=== PATIENT | female | born 1980 | race Caucasian/White ===

== ENCOUNTER 2025-07-19 13:50 | Outpatient (REF) | payer BC, SELFPAY ==
[2025-07-19 18:05] LABS: MANUAL DIFF FLAG NO
[2025-07-19 18:06] LABS: Hematocrit 40.3 % (37.0-47.0); Hemoglobin 13.0 g/dl (12.0-16.0); Imm Gran Abs Auto 0.03 X10*3/uL (0.00-0.03); Imm Gran Pct Auto 0.3 % (0.0-0.4); Lymphocytes Absolute Auto 2.9 X10*3/uL (1.2-4.9); Mean Corpuscular HGB Conc 32.3 g/dl (31.0-35.0); Mean Corpuscular Hemoglobin 29.2 pg (27.0-33.0); Mean Corpuscular Volume 90.6 fL (80.0-98.0); NRBC Abs Auto 0.000 X10*3/uL (0.0-0.012); NRBC Pct Auto 0.0 /100WBC (0.0-0.2); Platelet Count 381 X10*3/uL (160-400); Red Blood Count 4.45 X10*6/uL (4.20-5.50); White Blood Count 9.4 X10*3/uL (4.8-10.8)
[2025-07-19 18:34] LABS: Alanine Aminotransferase 30 U/L (0-31); Albumin Level 4.3 g/dL (3.5-5.0); Alkaline Phosphatase 68 U/L (39-117); Anion Gap 10 (12-20); Aspartate Amino Transferase 28 U/L (5-31); Blood Urea Nitrogen 17 mg/dL (9-16); Calcium 9.6 mg/dL (8.4-10.2); Carbon Dioxide 29 mmol/L (22-29); Chloride 105 mmol/L (96-108); Cholesterol 196 mg/dL (<200); Estimated Glomerular Filt Rate > 60; HDL Cholesterol 81 mg/dL (>40); Potassium 3.9 mmol/L (3.3-5.1); Sodium 140 mmol/L (135-145); Total Protein 7.0 g/dL (6.5-8.0); Triglycerides 147 mg/dL (<150)
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
--- OUTSIDE RECORDS SUMMARY | 2025-07-19 19:50 | XMS_ITS | Encounter Summary ---
Author Organization [facility] Address [address] [place] [address] Care Team Providers Care Clinical Informatics Manager Name Role Phone Betty Herzog DO Primary Care Provider Unavaila ble Reason for Visit * Reason Onset Date Comments 09/11/2023 Medication 09/11/2023 Encounter Details Date Type Department Care Team Description 09/11/2023 Telephone OBGYN - [place] [address] [place] [address] Emiliana Farrar CNM [address] [place] [address] ; Medication Social History Tobacco Use Types Packs/Day Years Used Date Smoking Tobacco: Former Cigarettes 1 Vapor Smokeless Tobacco: Never Alcohol Use Standard Drinks/Week Comments Not Currently 0 (1 standard drink = 0.6 oz pur e alcohol) couple days week Sex Assigned at Date Recorded Not on file Job Start Date Occupation Industry Not on file Not on file Not on file documented as of this encounter Miscellaneous Notes * Telephone Encounter - Milagro Petty R.N. - 09/11/2023 4:58 PM EST Rx instructions reviewed with pt. Pt understands * Telephone Encounter - Neema Posada - 09/11/2023 4:58 PM EST Pt calling again. I spoke with nurse and advised pt that this is the correct dosage and directions. * Telephone Encounter - Claudia Ace - 09/11/2023 4:25 PM EST What is the name of the medication patient is having a problem with?: Aspirin 81 mg What is the problem?: pt questioning directions Is the patient calling about the problem? YES If the patient is not the caller who is? NA Is this a NEW medication?: YES How long has the patient been taking this medication? NA Who prescribed this medication for the patient? Emiliana Farrar Who is patients PCP?: Betty Herzog Payor: JONE/PPO POS / Plan: PPO $20 [employer] [id number] / Product Type: PPO [id number] documented in this encounter Plan of Treatment Not on file documented as of this encounter Visit Diagnoses Not on filedocumented in this encounter Care Teams Clinical Informatics Manager Relationship Specialty Start Date End Date Betty Herzog DO PCP - General Internal Medicine 07/22/22 documented as of this encounter
--- OUTSIDE RECORDS SUMMARY | 2025-07-19 19:50 | XMS_ITS | Encounter Summary ---
Author Organization [facility] Address [address] [place] [address] Care Team Providers Care Cleaner Window Name Role Phone Betty Herzog DO Primary Care Provider Adrianna elliott Encounter Details Date Type Department Care Team Description 10/08/2023 Pt. Non Urgent Medical Question OBGYN - [place] [address] [place] [address] Emiliana Farrar CNM [address] [place] [address] Social History Tobacco Use Types Packs/Day Years [...] encounter Miscellaneous Notes * Telephone Encounter - Flor Nelson R.N. - 10/08/2023 9:43 AM ESTFrom: Cassi Clemens To: Emiliana Farrar CNM Sent: 10/08/2023 9:42 AM EST Subject: Teeth cleaning when Quick question I scheduled a teeth cleaning appointment for November 01 and will be 17 weeks .....is it safe for a teeth cleaning especially since they recline you backwards and your on yourback? Cassi Clemens documented in this encounter Plan of Treatment Not on file documented as of this encounter Visit Diagnoses Not on filedocumented in this encounter Care Teams Cleaner Window Relationship Specialty Start Date End Date Betty Herzog DO PCP - General Internal Medicine 07/22/22 documented as of this encounter
--- OUTSIDE RECORDS SUMMARY | 2025-07-19 19:50 | XMS_ITS | Encounter Summary ---
Author Organization [facility] Address [address] [place] [address] Care Team Providers Care General Education Instructor Name Role Phone Betty Herzog DO Primary Care Provider Unavaila ble Reason for Visit * Reason Onset Date Comments 10/30/2023 Encounter Details Date Type Department Care Team Description 10/30/2023 Telephone OBN [address] [id number] [address] Social History Tobacco Use Types Packs/Day Years [...] * Telephone Encounter - Marlin Jackson - 10/30/2023 9:38 AM EST Pt calling concerned states her first MATTHEW was 04/04/24 and now the [employer] results says her MATTHEW is 04/06/24. [facility];d she go by . Please advsie (pt says you can send message via my chart barbra) documented in this encounter Plan of Treatment Not on file documented as of this encounter Visit Diagnoses Not on filedocumented in this encounter Care Teams General Education Instructor Relationship Specialty Start Date End Date Betty Herzog DO PCP - General Internal Medicine 07/22/22 documented as of this encounter
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
--- OUTSIDE RECORDS SUMMARY | 2025-07-19 19:50 | XMS_ITS | Encounter Summary ---
Author Organization [facility] Address [address] [place] [address] Care Team Providers Care Credentialing Analyst Name Role Phone Betty Herzog DO Primary Care Provider Margauxa ble Encounter Details Date Type Department Care Team Description 10/30/2023 Pt. Non Urgent Medical Question OBGYN - [place] [address] [place] [address] Emiliana Farrar CNM [address] [place] [address] Social History Tobacco Use Types Packs/Day Years [...] Telephone Encounter - Milagro Petty R.N. - 10/30/2023 1:34 PM ESTFrom: Cassi Clemens To: Emiliana Farrar CNM Sent: 10/30/2023 9:46 AM EST Subject: Due date change from ultrasound I had my first ultrasound on September 30 and on the ultrasound under 1st Trimester Genetic Sonogramscreening says my MATTHEW is April 04 2024. Just wanted to let you know cause my new Test result for Genetic testing still had April 06 due date. Cassi Clemens - Date of 1980 documented in this encounter Plan of Treatment Not on file documented as of this encounter Visit Diagnoses Not on filedocumented in this encounter Care Teams Credentialing Analyst Relationship Specialty Start Date End Date Betty Herzog DO PCP - General Internal Medicine 07/22/22 documented as of this encounter
--- OUTSIDE RECORDS SUMMARY | 2025-07-19 19:50 | XMS_ITS | Encounter Summary ---
Author Organization [facility] Address [address] [place] [address] Care Team Providers Care Orderly Name Role Phone Betty Herzog DO Primary Care Provider Unavaila ble Reason for Visit * Reason Onset Date Comments TEST RESULTS 09/09/2023 Encounter Details Date Type Department Care Team Description 09/09/2023 Telephone OBN - [place] [address] [place] [address] Emiliana Farrar CN [address] [place] [id number] TEST RESULTS Social History Tobacco Use Types Packs/Day Years [...] encounter Miscellaneous Notes * Telephone Encounter - Maria Victoria Altamirano - 09/09/2023 2:53 PM EST Pt had a glucose test done and states her result was 147 she is 10 weeks - wants to know if this is high and if so what should she do - please call to advise documented in this encounter Plan of Treatment Not on file documented as of this encounter Visit Diagnoses Not on filedocumented in this encounter Care Teams Orderly Relationship Specialty Start Date End Date Betty Herzog DO PCP - General Internal Medicine 07/22/22 documented as of this encounter
--- OUTSIDE RECORDS SUMMARY | 2025-07-19 19:50 | XMS_ITS | Encounter Summary ---
Author Organization [facility] Address [address] [place] [address] Care Team Providers Care Us Administrative Law Judge Name Role Phone Betty Herzog DO Primary Care Provider Adrianna elliott Encounter Details Date Type Department Care Team Description 11/04/2023 Pt. Non Urgent Medical Question OBGYN - [place] [address] [place] [address] Emiliana Farrar CNM [address] [place] [address] Social History Tobacco Use Types Packs/Day Years [...] Telephone Encounter - Flor Nelson R.N. - 11/04/2023 4:12 PM ESTFrom: Cassi Clemens To: Emiliana Farrar CNM Sent: 11/04/2023 3:53 PM EST Subject: Hemorrhoid medicine What hemorrhoid medicine is safe for I'm dealing with horrible hemorrhoids right now? documented in this encounter Plan of Treatment Not on file documented as of this encounter Visit Diagnoses Not on filedocumented in this encounter Care Teams Us Administrative Law Judge Relationship Specialty Start Date End Date Betty Herzog DO PCP - General Internal Medicine 07/22/22 documented as of this encounter
--- OUTSIDE RECORDS SUMMARY | 2025-07-19 19:50 | XMS_ITS | Encounter Summary ---
Author Organization [facility] Address [address] [place] [address] Care Team Providers Care Community Relations Director Name Role Phone Betty Herzog DO Primary Care Provider Unavaila ble Encounter Details Date Type Department Care Team Description 09/26/2023 Telephone OBGYN - [place] [address] [place], [place] [id number] Nishi Del Cid CNM [address] [place] [address] Social History Tobacco Use Types Packs/Day Years [...] on file documented as of this encounter Plan of Treatment Not on file documented as of this encounter Visit Diagnoses Not on filedocumented in this encounter Care Teams Community Relations Director Relationship Specialty Start Date End Date Betty Herzog DO PCP - General Internal Medicine 07/22/22 documented as of this encounter
--- OUTSIDE RECORDS SUMMARY | 2025-07-19 19:51 | XMS_ITS | Encounter Summary ---
Author Organization [facility] Address [address] [place] [address] Care Team Providers Care Radio Recorder Name Role Phone Betty Herzog DO Primary Care Provider Margauxa ble Encounter Details Date Type Department Care Team Description 11/10/2023 Pt. Non Urgent Medical Question OBGYN - [place] [address] [place] [address] Emiliana Farrar CNM [address] [place] [address] Social History Tobacco Use Types Packs/Day Years [...] Telephone Encounter - Milagro Petty R.N. - 11/10/2023 9:19 AM ESTFrom: Cassi Clemens To: Emiliana Farrar CNM Sent: 11/10/2023 6:55 AM EST Subject: Been sick all weekend Question what meds can I take for congestion in my chest....been sick all weekend. Cassi documented in this encounter Plan of Treatment Not on file documented as of this encounter Visit Diagnoses Not on filedocumented in this encounter Care Teams Radio Recorder Relationship Specialty Start Date End Date Betty Herzog DO PCP - General Internal Medicine 07/22/22 documented as of this encounter
--- OUTSIDE RECORDS SUMMARY | 2025-07-19 19:51 | XMS_ITS | Encounter Summary ---
Author Organization [facility] Address [address] [place] [address] Care Team Providers Care Clinical Microbiologist Name Role Phone Betty Herzog DO Primary Care Provider Margauxa ble Encounter Details Date Type Department Care Team Description 12/02/2023 Pt. Non Urgent Medical Question OBGYN - [place] [address] [place] [address] Emiliana Farrar CNM [address] [place] [address] Social History Tobacco Use Types Packs/Day Years [...] Telephone Encounter - Milagro Petty R.N. - 12/02/2023 9:22 AM ESTFrom: Cassi Clemens To: Emiliana Farrar CNM Sent: 12/02/2023 9:21 AM EST Subject: Ankle swelling and mild headache I have a quick question I am 22 weeks and is it normal to have swelling of ankles and mildheadaches......I have a blood pressure monitor at work and blood pressure has been normal. Have been dealing with getting up a lot during the night and runny nose so could be sinuses causing the mildheadaches . documented in this encounter Plan of Treatment Not on file documented as of this encounter Visit Diagnoses Not on filedocumented in this encounter Care Teams Clinical Microbiologist Relationship Specialty Start Date End Date Betty Herzog DO PCP - General Internal Medicine 07/22/22 documented as of this encounter
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
--- OUTSIDE RECORDS SUMMARY | 2025-07-19 19:51 | XMS_ITS | Encounter Summary ---
Author Organization [facility] Address [address] [place] [address] Care Team Providers Care Door Technician Name Role Phone Betty Herzog DO Primary Care Provider Unavaila ble Reason for Visit * Reason Onset Date Comments 02/12/2024 Blood Pressure Elevated 02/12/2024 Encounter Details Date Type Department Care Team Description 02/12/2024 Telephone OBGYN - [place] [address] [place] [address] Emiliana Farrar CNM [address] [place] [address] ; Blood Pressure Elevated Social History Tobacco Use Types Packs/Day Years [...] Telephone Encounter - Milagro Petty R.N. - 02/12/2024 5:03 PM EDT Spoke with patient. Pt left work upset took BP at work it was elevated. Pt advised to go home, Eat dinner, shower, and rest before retaking BP. Denies any H/A or visual disturbances or abdominal pain. Pos FM. Has Appt 02/13/24 for OB visit. Pt more calm and will follow instructions given. * Telephone Encounter - Alexandria omid Beltran - 02/12/2024 4:55 PM EDT Chief Complaint/problem: 33 weeks ,elevated bp 163/108 How long has the patient had this problem? 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
--- OUTSIDE RECORDS SUMMARY | 2025-07-19 19:51 | XMS_ITS | Encounter Summary ---
Author Organization [facility] Address [address] [place] [address] Care Team Providers Care Knowledge Management Consultant Name Role Phone Betty Herzog DO Primary Care Provider Unavaila ble Encounter Details Date Type Department Care Team Description 03/18/2024 Telephone OBGYN - [place] [address] [place] [address] Rosi Muñoz MD [address] [place] [address] Social History Tobacco Use Types Packs/Day Years [...] Telephone Encounter - Milagro Petty R.N. - 03/18/2024 3:15 PM EDT Kaycee from ultrasound called stating BPP 8/8 and pt was sent home. documented in this encounter Plan of Treatment Not on file documented as of this encounter Visit Diagnoses Not on filedocumented in this encounter Care Teams Knowledge Management Consultant Relationship Specialty Start Date End Date Betty Herzog DO PCP - General Internal Medicine 07/22/22 documented as of this encounter
--- OUTSIDE RECORDS SUMMARY | 2025-07-19 19:51 | XMS_ITS | Encounter Summary ---
Author Organization [facility] Address [address] [place] [address] Care Team Providers Care Transmission Assembler Name Role Phone Betty Herzog DO Primary Care Provider Unavaila ble Encounter Details Date Type Department Care Team Description 05/17/2024 Pt. Non Urgent Medical Question OBN - [place] [address] [place] [address] Emiliana Farrar CNM [address] [place] [address] Social History Tobacco Use Types Packs/Day Years [...] on filedocumented in this encounter Care Teams Transmission Assembler Relationship Specialty Start Date End Date Betty Herzog DO PCP - General Internal Medicine 07/22/22 documented as of this encounter
--- OUTSIDE RECORDS SUMMARY | 2025-07-19 19:51 | XMS_ITS | Encounter Summary ---
Author Organization [facility] Address [address] [place] [address] Care Team Providers Care Demolition Crane Operator Name Role Phone Wilfrido Nelson MD Primary Care Provider [phone] Betty Herzog DO Primary Care Provider Unavaila ble Encounter Details Date Type Department Care Team Description 12/19/2021 Orders Only RIPRAP WORKER - [address] [id number] Ariane Thompson CNM [address] [place], [place] [phone] Social History Tobacco Use Types Packs/Day Years [...] suspected to have Coronavirus/COVID-19? No / Unsure 12/18/2021 12:59 PM EDT documented as of this encounter Plan of Treatment Not on file documented as of this encounter Visit Diagnoses Not on filedocumented in this encounter Care Teams Demolition Crane Operator Relationship Specialty Start Date End Date Wilfrido Nelson MD [address] [place] [address] PCP - General Internal Medicine 07/30/21 07/21/22 Betty Herzog DO [address] [facility] [address] PCP - General Internal Medicine 07/22/22 documented as of this encounter
--- OUTSIDE RECORDS SUMMARY | 2025-07-19 19:51 | XMS_ITS | Encounter Summary ---
Author Organization [facility] Address [address] [place] [address] Care Team Providers Care Alarm Adjuster Name Role Phone Betty Herzog DO Primary Care Provider Margauxa ble Encounter Details Date Type Department Care Team Description 04/15/2024 Pt. Non Urgent Medical Question OBGYN - [place] [address] [place] [address] Emiliana Farrar CNM [address] [place] [address] Social History Tobacco Use Types Packs/Day Years [...] Telephone Encounter - Milagro Petty R.N. - 04/15/2024 1:14 PM EDTFrom: Cassi Clemens To: Emiliana Farrar CNM Sent: 04/15/2024 12:50 PM EDT Subject: Hemorrhoid I have a horrible huge hemorrhoid that is very painful......what can I do to get rid of this? documented in this encounter Plan of Treatment Not on file documented as of this encounter Visit Diagnoses Not on filedocumented in this encounter Care Teams Alarm Adjuster Relationship Specialty Start Date End Date Betty Herzog DO PCP - General Internal Medicine 07/22/22 documented as of this encounter
--- OUTSIDE RECORDS SUMMARY | 2025-07-19 19:51 | XMS_ITS | Encounter Summary ---
Author Organization [facility] Address [address] [place] [address] Care Team Providers Care Prison Classification Counselor Name Role Phone Betty Herzog DO Primary Care Provider Unavaila ble Encounter Details Date Type Department Care Team Description 12/17/2023 Orders Only Lab - [place] [address] [place] [address] Emiliana Farrar CNM [address] [place] [id number] Social History Tobacco Use Types Packs/Day Years [...] on filedocumented in this encounter Care Teams Prison Classification Counselor Relationship Specialty Start Date End Date Betty Herzog DO PCP - General Internal Medicine 07/22/22 documented as of this encounter
--- OUTSIDE RECORDS SUMMARY | 2025-07-19 19:51 | XMS_ITS | Encounter Summary ---
Author Organization [facility] Address [address] [place] [address] Care Team Providers Care Mortgage Loan Interviewer Name Role Phone Betty Herzog DO Primary Care Provider Margauxa ble Encounter Details Date Type Department Care Team Description 12/02/2023 Telephone [facility] [facility] [address] [place] [address] Rosi Muñoz MD [address] [place] [id number] Social History Tobacco Use Types Packs/Day Years [...] Telephone Encounter - Milagro Petty R.N. - 12/05/2023 11:29 AM EST Spoke with patient.Reviewed with Dr Muñoz pt c/o increased swelling in Ankle lower leg, no redness or tenderness, Called banquet server on call provider last night and referred to schedule appt today . Appt made today @130pm in [place]. * Telephone Encounter - Milagro Petty R.N. - 12/02/2023 9:37 AM EST Spoke with patient.Pt My chart questions answered. Pt states mild ankle swelling this weekend afterincreased activity. Enc elevating lower extremities prn and avoid salty foods.Scheduled appt for PNV 12/16 at 4pm, that was previously canceled. documented in this encounter Plan of Treatment Not on file documented as of this encounter Visit Diagnoses Not on filedocumented in this encounter Care Teams Mortgage Loan Interviewer Relationship Specialty Start Date End Date Betty Herzog DO PCP - General Internal Medicine 07/22/22 documented as of this encounter
--- OUTSIDE RECORDS SUMMARY | 2025-07-19 19:51 | XMS_ITS | Clinical Summary ---
Author Organization [facility] Address [address] [place] [address] Care Team Providers Care Anesthesiology Crna Name Role Phone Betty Herzog DO Primary Care Provider Unavaila ble Allergies Active Allergy Reactions Severity Noted Date Comments Lactose 11/04/2018 Retin-A Micro OTHER 08/02/2021 Redness of face Medications Medication Sig Dispensed Refills Start Date End Date Status Vit-Fe Fumarate-FA ( Vitamin) 27-0.8 MG Tab Take 1 Tablet by mouth daily. 30 Tablet 11 08/13/2023 Active Active Problems Problem Noted Date Elevated blood pressure affecting pregna ncy in first trimester, antepartum 09/26/2023 Overview: Per patient she reports her BPs were high and they were keeping an eye on it this was about a year ago she was never started on medication management. 09/29/2023 Baseline PEC panel normal urine TPcr ratio 0.13 Baseline (<20 weeks) CBC, AST, ALT, creatinine and P/C ratio. If P/C ratio > 0.3 check urine creatinine, if normal, send 24-hour urine collection for total protein Start ASA 162mg at 12 weeks until delivery If no medication required, delivery 38-39 weeks Single growth u/s at 32 weeks Start meds for SBP>140 or DBP> 90 BP goal SBP: <140 and DBP: <90 If on medication or other comorbidities: Serial growth u/s at 28 weeks Weekly NST at 32 weeks Twice weekly testing at 36 weeks Deliver 37-39 weeks History of ankle surgery 09/09/2023 Herniated intervertebral disc of lumbar spine 09/09/2023 Overview: Partial disc removal for L5-S1 this was in 2018 Will need ob anesthesia consult- History of knee surgery 08/20/2021 Osteoarthritis of cervical spine 021 Resolved Problems Problem Noted Date Resolved Date GBS (group B Streptococcus c arrier), +RV culture, currently 03/15/2024 05/12/2024 Overview: Treat in labor Excessive weight gain in in third trim candace 02/26/2024 05/12/2024 Overview: 02/25- TWG- 52lb- counselled on healthy food options and increasing activity EFW 51%ile on 03/11 Elderly primigravida, antepartum 09/09/2023 05/12/2024 Overview: ASA 162 mg daily at 12w through delivery Referral for NIPT if desired Detailed US 3rd trimester growth US if maternal age 40 or greater Weekly NST at 36 weeks Offer delivery at 39 weeks if maternal age 40 or greater Supervision of normal first 09/09/2023 05/12/2024 Overview: 1. [place] site: [address] 2. Delivery site: [facility] 3. Mobile Mommas: 4. Dating criteria: LMP only 5. Blood type: A- 6. Genetic screening: Panorama Low risk female Result: Horizon 09/09 Negative 14 out of 14 Nuchal Translucency Date: Result: AFP negative 6. GBS: Positive Date: 03/13 7. FOB name: Moiz Clemens 8. Plans A. Epidural or other pain management - B. Labor support identified - C. Tdap - Date: 01/16/24, Flu - Date: May 2023 at the [facility] D. Breast or Bottle feed: breast E. Baby's name - F. Circumcision - 9. Hospital Course: Obesity in 09/09/2023 05/12/2024 Overview: BMI 32 HgbA1C and 1 hour GTT at initial labs - elevated 147- 3 hr ordered, HGB A1C 5.1 ASA 162mg at 12 weeks until delivery Detailed anatomy ultrasound Repeat GTT 24-28 weeks if early is normal BMI of 50 by 28wks transfer to [facility] DVT prophylaxis- Lovenox if CS and BMI >35 Rh negative state in antepartum period 3 05/12/2024 Overview: Pt reports Blood type is A negative Rhogam given 01/16/2024 Abnormal GTT (glucose tolerance test) 09/09/2023 05/12/2024 Overview: 09/09/2023 at 10w0d One hour 147- 3 hour- passed 12/26/2023 24-28 week screen patient opted for repeat 3 hr, patient passed 3 hour test Elevated blood pressure reading 08/28/2023 01/16/2024 Overview: At 8 weeks Immunizations Name Administration Dates Next Due COVID-19 (Moderna) 06/01/2024 Influenza (> 6 Months) 06/01/2024 Influenza Vaccine-preservati ve Free-quadrivalent 4 Years 08/02/2021 Tdap 01/16/2024 Family History Medical History Relation Name Comments Lymphoma Aunt CO Father Stroke Father CA Prostate Maternal Grandfather w/metas tisis to bone colon ca Maternal Grandmother Dementia Mother CA Breast Negative Hx CA Ovarian Negative Hx CA of Pancreas Negative Hx Uterine Cancer Negative Hx Relation Name Status Comments Aunt Father [...] file Not on file Not on file Last Filed Vital Signs Vital Sign Reading Time Taken Comments Blood Pressure 130/85 05/12/2024 10:57 AM EDT Pulse 91 05/12/2024 10:57 AM EDT Temperature 36.7 C (98.1 F) 08/20/2021 10:27 AM EST Respiratory Rate 16 05/12/2024 10:57 AM EDT Oxygen Saturation 100% 08/20/2021 10:27 AM EST Inhaled Oxygen Concentration - - Weight 113.9 kg (251 lb) 03/25/2024 1:08 PM EDT Height 160 cm (5' 3 ) 03/11/2024 1:10 PM EDT Body Mass Index 44.46 03/11/2024 1:10 PM EDT Plan of Treatment Health Maintenance Due Date Last Done Comments MAMMOGRAM 04/28/2024 04/28/2023, 03/30, 05/01/2022, Additional history exists BMI CHECK/ADVISE 09/29/2024 05/12/2024, , 05/01/2022, Additional history exists DEPRESSION SCREENING/FOLLOWUP 09/29/2024 SOCIAL NEEDS SCREENING 09/29/2024 BASELINE HEALTH EXAM 40-64 03/10/2025 03/10/2023 Covid-19 Vaccine (2 - 2022-2 4 season) 2025 06/01/2024 INFLUENZA (#1) 2025 06/01/2024, 08/02/2021 CHOLESTEROL SCREENING 08/02/2026 08/02/2021 CERVICAL CANCER SCREENING 09/26/2028 09/26/2023, 03/2019 DTAP/TDAP/TD (2 - Td or Tdap) 01/15/2034 01/16/2024 PNEUMOCOCCAL VACCINE FOR HIG H RISK PATIENTS (#1) 2045 Care Teams Anesthesiology Crna Relationship Specialty Start Date End Date Betty Herzog DO PCP - General Internal Medicine 07/22/22
[2025-07-20 21:23] LABS: Lyme Abs Screen <0.90 index
== END 2025-07-19 13:51 | disposition home or self-care (01) ==
LOC: HO.WFDLDS 13:50
PROVIDERS: PCP Internal Medicine; Visit Provider Internal Medicine
DX: Z00.00 Encounter for general adult medical examination without abnormal findings (principal); I10 Essential (primary) hypertension; M19.90 Unspecified osteoarthritis, unspecified site; K21.9 Gastro-esophageal reflux disease without esophagitis; J45.40 Moderate persistent asthma, uncomplicated; Z13.228 Encounter for screening for other metabolic disorders; Z13.0 Encounter for screening for diseases of the blood and blood-forming organs and certain disorders involving the immune mechanism; Z13.1 Encounter for screening for diabetes mellitus
CPT/HCPCS: 36415; 80053; 80061; 83036; 84443; 85025; 86617; 86618; 96127

== ENCOUNTER 2025-07-19 13:50 | Outpatient (AMB) | payer BC, SELFPAY ==
--- NOTE | 2025-07-19 14:05 | MHC.PC.OV ---
Vital Signs 07/19/25 14:15 Height 5 ft 3.78 in Weight 234 lb 6 oz BMI 40.5 BP 134/84 Blood Pressure Location Rt brachial Position Sitting Respiration 18 Pulse 77 Pulse Source Pulse Oximeter Temp 98.1 F Temp Source Oral Pulse Oximetry (%) 98 Oxygen Delivery Method Room Air Intake Visit Reasons: CPE Intake Note: cpe Livestock Counter Required: No Allergies Milk Containing Products (Dairy) Allergy (Intermediate, Verified 07/19/25 14:10) Diarrhea Tobacco use date assessed: 07/19/25 Dental Screening Dental Screen Date: 07/19/25 Did you have a dental visit in the last 12 months?: No Did you have a dental problem in the last 6 months where you did not have access to dental care?: No Was dental information given to patient?: Patient has dentist HPI HPI Comments History of Present Illness Details 44 year old female with a past medical history OA, asthma, elevated BP, presenting to [facility] care. Went to allergy & immunology -had ?pfts with diagnosis of asthma. Remote allergy shots. Had COVID 5 times previously. Has albuterol but tells me she has required a few recent courses of prednisone. Currrently breathing is baseline/good Obesity; she is currently doing weight watchers. Still having issues with weight loss RIK 2018-[facility] back surgery 2020 [facility] 2012 ankle [facility] contamination consultant: Scarlett Mammo UTD Scarlett Td-1 year old ROS CONSTITUTIONAL: Denies weight loss, fever and chills. HEENT: Denies changes in vision and hearing. RESPIRATORY: Denies SOB and cough. CV: Denies palpitations and CP GI: Denies abdominal pain, nausea, vomiting and diarrhea. : Denies dysuria and urinary frequency. MSK: Denies new myalgia and joint pain. SKIN: Denies rash and pruritus. NEUROLOGICAL: Denies headache PSYCHIATRIC: Denies recent changes in mood. PHYSICAL EXAM: GENERAL: Alert and oriented x 3. NAD EYES: EOMI. Anicteric. HENT: Moist mucous membranes. No scleral icterus. No cervical lymphadenopathy. LUNGS: Clear to auscultation bilaterally. CARDIOVASCULAR: Regular rate and rhythm. No murmur. No JVD. ABDOMEN: Soft, non-tender +bs EXTREMITIES: No edema. Non-tender. SKIN: No rashes or lesions. Warm. NEUROLOGIC: No focal neurological deficits. CN II-XII grossly intact PSYCHIATRIC: Cooperative. Appropriate mood and affect [facility] Medical History Acid reflux Arthritis Hypertension Asthma Surgical History H/O knee surgery History of back surgery History of ankle surgery Family History Mother Asthma Hypertension Father Hypertension High cholesterol Diabetes Cardiovascular disease Maternal Grandmother Colon cancer Social History Housing: House Alcohol intake: current Patient Tobacco Use Status: Former Tobacco user Cigarettes Per Day: 2 Years Smoked: 2 e-Cigarette/Vaping Use: Former Use Second Hand Smoke Exposure: Yes service: No Current occupational status: employed 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 1. Little interest or pleasure in doing things: not at all 2. Feeling down, depressed, or hopeless: not at all 3. Trouble falling or staying asleep, or sleeping too much: not at all 4. Feeling tired or having little energy: several days 5. Poor appetite or overeating: not at all 6. Feeling bad about yourself - or that you are a failure or have let yourself or your family down: not at all 7. Trouble concentrating on things, such as reading the newspaper or watching television: not at all 8. Moving or speaking so slowly that other people could have noticed. Or the opposite - being so fidgety or restless that you have been moving around a lot more than usual: not at all 9. Thoughts that you would be better off or of hurting yourself in some way: not at all Total score: 1 Depression Screening Interpretation: Negative Depression Screening Done: Yes 19782 - PHQ-9 Billing: Yes Source: Developed by Drs. Jevon Foster, Donna Alfaro, Real Soriano and colleagues, with an educational yasmeen from [employer]. Thrive Questionnaire I am a: Patient What is your living situation today?: I have a steady place to live Within the past 12 months, did the food you bought not last and you didn't have the money to get more?: Never true Within the past 12 months, did you worry whether your food would run out before you got money to buy more?: Never true Do you have trouble paying for medicines?: No Do you have trouble getting transportation to medical appointments?: No Do you have trouble paying your heating and electricity bill?: No Do you have trouble taking care of your child, family member or friend?: No Do you have trouble with day-to-day activities such as bathing, preparing meals, shopping, managing finances, etc.?: No Are you currently unemployed and looking for a job?: No Are you interested in more education?: No Please select the resources that you would like help with: None Currently or been in a relationship where the following occur: No concerns reported THRIVE Score: 0 AUDIT C Alcohol Use Questionnaire (AUDIT-C) 1. How often do you have a drink containing alcohol?: 2-3 times a week 2. How many drinks containing alcohol do you have on a typical day when you are drinking?: 1 or 2 3. How often do you have six or more drinks on one occasion?: Never Total Score: 3 ZULLY-7 AMB Questionnaire ZULLY-7 Date ZULLY - 7 assessed: 07/19/25 Feeling nervous, anxious, or on edge: 0 = Not at all Not being able to stop or control worryin = Not at all Worrying too much about different things: 0 = Not at all Trouble relaxin = Not at all Being so restless that it is hard to sit still: 0 = Not at all Becoming easily annoyed or irritable: 0 = Not at all Feeling afraid as if something awful might happen: 0 = Not at all Total ZULLY-7 score (0-4 normal; 5-9 mild; 10-14 moderate; 15-21 severe): 0 Source: Developed by Drs. Jevon Foster, Donna Alfaro, Real Soriano and colleagues, with an educational yasmeen from [employer]. ZULLY-7 Assessment Billing ZULLY-7 Assessment Tool: ZULLY-7 Assessment 88488 Physical exam (Primary Care) Vital Signs: Last Vital Signs Temp 98.1 F 07/19/25 14:15 Pulse 77 07/19/25 14:15 Resp 18 07/19/25 14:15 BP 134/84 07/19/25 14:15 Pulse Ox 98 07/19/25 14:15 Oxygen Delivery Method Room Air 07/19/25 14:15 BMI result Body Mass Index 40.5 Tobacco/Smoking Status: Tobacco use Status Patient Tobacco Use Status Former Tobacco user 07/19/25 14:14 PHQ-9: PHQ-9 Score PHQ-9: Total score 1 07/19/25 14:08 Depression Screening Interpretation: Negative Currently or been in a relationship where the following occur: No concerns reported Coding Level of Care Code New Pt Prev Care 40-64y(56935) Diagnoses Physical exam Z00.00 Primary hypertension I10 Hypertension type: primary hypertension Gastroesophageal reflux disease, unspecified whether esophagitis present K21.9 Esophagitis presence: esophagitis presence not specified Arthritis M19.90 Moderate persistent asthma, unspecified whether complicated J45.40 Asthma severity: moderate Asthma persistence: persistent Asthma complication type: unspecified Additional Codes ZULLY-7 Assessment Billing - ZULLY-7 Assessment Tool: ZULLY-7 Assessment [id number] ([id number]) PHQ-9 - 27327 - PHQ-9 Billing: Yes ([id number]) Assessment & Plan Assessment & Plan (1) Physical exam: Code(s): Z00.00 - Encounter for general adult medical examination without abnormal findings (2) Hypertension: Code(s): I10 - Essential (primary) hypertension Category: Medical Qualifiers: Hypertension type: primary hypertension Qualified Code(s): I10 - Essential (primary) hypertension (3) Acid reflux: Code(s): K21.9 - Gastro-esophageal reflux disease without esophagitis Category: Medical Qualifiers: Esophagitis presence: esophagitis presence not specified Qualified Code(s): K21.9 - Gastro-esophageal reflux disease without esophagitis (4) Arthritis: Code(s): M19.90 - Unspecified osteoarthritis, unspecified site Category: Medical (5) Asthma: Code(s): J45.909 - Unspecified asthma, uncomplicated Category: Medical Qualifiers: Asthma severity: moderate Asthma persistence: persistent Asthma complication type: unspecified Qualified Code(s): J45.40 - Moderate persistent asthma, uncomplicated Plan 44 year old to establish care/CPE Past medical surgical social reviewed Preventive measures for age discussed Obesity-discussed continued efforts toward weight loss Asthma-stable symbicort. Decline pulm referral Orders: Orders Complete Blood Count Auto Diff Today I10 - Essential (primary) hypertension, K21.9 - Gastro-esophageal reflux disease without esophagitis, M19.90 - Unspecified osteoarthritis, unspecified site, Z13.0 - Encounter for screening for diseases of the blood and blood-forming organs and certain disorders involving the immune mechanism, Z13.228 - Encounter for screening for other metabolic disorders TSH reflex Free T4 Today I10 - Essential (primary) hypertension, K21.9 - Gastro-esophageal reflux disease without esophagitis, M19.90 - Unspecified osteoarthritis, unspecified site, Z13.0 - Encounter for screening for diseases of the blood and blood-forming organs and certain disorders involving the immune mechanism, Z13.228 - Encounter for screening for other metabolic disorders Hemoglobin A1c Today I10 - Essential (primary) hypertension, K21.9 - Gastro-esophageal reflux disease without esophagitis, M19.90 - Unspecified osteoarthritis, unspecified site, Z13.0 - Encounter for screening for diseases of the blood and blood-forming organs and certain disorders involving the immune mechanism, Z13.228 - Encounter for screening for other metabolic disorders Lyme IgG/IgM w/reflex to WB Today M19.90 - Unspecified osteoarthritis, unspecified site Comprehensive Met. Panel Today I10 - Essential (primary) hypertension, K21.9 - Gastro-esophageal reflux disease without esophagitis, M19.90 - Unspecified osteoarthritis, unspecified site, Z13.0 - Encounter for screening for diseases of the blood and blood-forming organs and certain disorders involving the immune mechanism, Z13.228 - Encounter for screening for other metabolic disorders Lipid Panel Today I10 - Essential (primary) hypertension, K21.9 - Gastro-esophageal reflux disease without esophagitis, M19.90 - Unspecified osteoarthritis, unspecified site, Z13.0 - Encounter for screening for diseases of the blood and blood-forming organs and certain disorders involving the immune mechanism, Z13.228 - Encounter for screening for other metabolic disorders Medications: New budesonide-formoterol 160-4.5 mcg/actuation (Symbicort) 2 puffs inhalation BID 10.2 grams 3RF
[2025-07-19 14:15] VITALS: BP 134/84; PULSE 77; RESP 18; TEMP 36.7; O2SAT 98; BMI 40.5
--- OUTSIDE RECORDS SUMMARY | 2025-07-19 18:32 | XMS_ITS ---
Author Name [facility] Organization Unknown History of Medication Use Medication Directions Dispensed Refills Start Date End Date Stat us promethazine-DM 07/13/2025 activ e azithromycin 07/13/2025 active prednisone 07/13/2025 active albuterol sulfate 07/13/2025 act billy amoxicillin 02/15/2025 active albuterol sulfate active Encounters Encounter Type Encounter Reason Primary Diagnosis Location Date Ambulatory TBE Acute bronchitis , unspecified [facility] 07/13/2025 Care Team Organization Name Specialty Phone Email Start Date End [facility] 07/14[facility]25 [facility] ([place]
--- OUTSIDE RECORDS SUMMARY | 2025-07-19 18:32 | XMS_ITS | Clinical Summary ---
Author Organization [address] Address [address] [place] [address] Phone Care Team Providers Care R Programmer Name Role Phone Betty Herzog Primary Care Provider [phone] Encounters Date Type Department Care Team Description 04/28/2025 Telephone Obstetrics and Gynecology - [address] [phone] Emiliana Farrar CNM 04/20/2025 Telephone Obstetrics and Gynecology [address] [phone] Emiliana Farrar CNM 04/20/2025 Telephone Obstetrics and Gynecology [address] [phone] Emiliana Farrar CNM from Last 3 Months Surgical History Surgery Date Site/Laterality Comments ANKLE SURGERY 2010 PROCEDURE: HISTORICAL ANKLE SURGERY BACK SURGERY 2018 PROCEDURE: HISTORICAL BACK SURGERY KNEE SURGERY Left PROCEDURE: HISTORICAL KNEE SURGERY Medical History Medical History Date Comments Former smoker DX:Former smoker Family History Medical History Relation Name Comments Lymphoma Aunt Heart attack Father Stroke Father Prostate cancer Maternal Grandfather w/me tastisis to bone Other: colon ca Maternal Grandmother Dementia Mother Breast cancer Neg Hx Ovarian cancer Neg Hx Pancreatic cancer Neg Hx Uterine cancer Neg Hx Relation Name Status Comments Aunt Father Maternal Grandfather Maternal Grandmother Mother Paternal Grandfather Paternal Grandmother Social History Tobacco Use Types Packs/Day Years Used Date Smoking Tobacco: Former Smokeless Tobacco: Never Alcohol Use Standard Drinks/Week Comments Not Currently 0 (1 standard drink = 0.6 oz pur e alcohol) Comments No Sex and Gender Information Value Date Recorded Sex Assigned at Not on file Legal Sex Female 10:51 AM EDT Gender Identity Not on file Sexual Orientation Not on file Obstetrics History Para Term AB IAB SAB Ectopic Multiple Livin g Live Births 1 09 29 1 Date Outcome GA Total Labor Labor/2nd/3rd Weight Sex Type Anes PTL Mary A1 A5 Name Clin Term Last Filed Vital Signs Vital Sign Reading Time Taken Comments Blood Pressure 130/85 05/12/2024 10:57 AM EDT Pulse 91 05/12/2024 10:57 AM EDT Temperature - - Respiratory Rate - - Oxygen Saturation - - Inhaled Oxygen Concentration - - Weight 114 kg (251 lb) 03/25/2024 1:08 PM EDT Height 160 cm (5' 3 ) 03/11/2024 1:10 PM EDT Body Mass Index 44.46 03/11/2024 1:10 PM EDT Plan of Treatment Health Maintenance Due Date Last Done Comments Hepatitis B Vaccines (1 of 3 - 19+ 3-dose series) 1999 Cervical Cancer Screening: HPV 2001 HPV Vaccines (1 - 3-dose SCDM series) 2007 Cholesterol Screening (Lipid Panel) 08/03/2021 HIV Screening 08/03/2021 Hepatitis C Screening 08/03/2021 Social Influencers of Health Screening 08/03/2021 Hypertension/CHF/CAD Annual BMP Blood Test 10/28/2023 Depression Screening 09/29/2024 COVID-19 Vaccine (2 - 2024- season) 2025 06/01/2024 Influenza Vaccine (#1) 2025 06/01/2024, 2020 Breast Cancer Screening 12/14/2026 12/15/19 25, 04/28/2023, 04/18/2023, Additional history exists DTaP,Tdap,and Td Vaccines (2 - Td or Tdap) 01/15/2034 01/16/2024 RSV Immunization Adult Patients (1 - 1-dose 75+ series) 2055 HIB Vaccines Aged Out No longer eligi ble based on patient's age to complete this topic Hepatitis A Vaccines Aged Out No long er eligible based on patient's age to complete this topic IPV Vaccines Aged Out No longer eligi ble based on patient's age to complete this topic MMR Vaccines Aged Out No longer eligi ble based on patient's age to complete this topic Meningococcal ACWY Vaccine Aged Out N o longer eligible based on patient's age to complete this topic Meningococcal B Vaccine Aged Out No l onger eligible based on patient's age to complete this topic Pneumococcal Vaccine: Pediatrics (0 to 5 Years) and At-Risk Patients (6 to 49 Years) Aged Out No longer eligible based on patient's age to complete this topic RSV Immunization Patients Under 20 months Aged Out No longer eligible based on patient's age to complete this topic Varicella Vaccines Aged Out No longer eligible based on patient's age to complete this topic Procedures Procedure Name Priority Date/Time Associated Diagnosis Comments MG MAMMO DIGITAL SCREENING W SILAS BILAT Routine 12/14/2024 2:03 PM EDT Encounter for screening mammogram for malignant neoplasm of breast from Last 3 Months or Most Recently Relevant to Health Maintenance Results * MG Mammo Digital Screening w Silas bilat (12/14/2024 2:03 PM EDT) Anatomical Region Laterality Modality Breast Bilateral Mammography 12/15/2024 11:3 8 AM EDT Impressions 12/15/2024 11:48 AM EDT 1. No mammographic evidence of malignancy 2. Scattered fibroglandular tissue BI-RADS CATEGORY: 2 - BENIGN RECOMMENDATION: Screening bilateral mammogram is recommended in 1 year. Mammo Location: [facility], [address] [place] [address], [address], . -------- FINAL REPORT -------- Dictated By: Kye Avila Dictated Date: 12/15/2024 11:38 ET Assigned Physician: Kye Avila Reviewed and Electronically Signed By: Kye Avila Signed Date: 12/15/2024 11:48 ET Workstation ID: [id number] Transcribed By: Self Edit Transcribed Date: 12/15/2024 11:38 ET Narrative 12/15/2024 11:48 AM EDT A BILATERAL DIGITAL 3D SCREENING MAMMOGRAPHY HISTORY: Routine screening. No family history of breast cancer. COMPARISON: Multiple priors dating back to 04/13/2021 Technique: Bilateral full field digital mammography (3D) was performed using standard CC and MLO projections , bilateral exaggerated cc views CAD was used to evaluate this mammogram. FINDINGS: Right: No suspicious masses, groups of microcalcification or areas of architectural distortion identified. Stable typically benign parenchymal asymmetries. Left: No suspicious masses, groups of microcalcification or areas of architectural distortion identified. Stable typically benign parenchymal asymmetries. BREAST DENSITY: B - There are scattered areas of fibroglandular density. Procedure Note Kye Avila MD - 12/15/2024 A BILATERAL DIGITAL 3D SCREENING MAMMOGRAPHY HISTORY: Routine screening. No family history of breast cancer. COMPARISON: Multiple priors dating back to 04/13/2021 Technique: Bilateral full field digital mammography (3D) was performedusing standard CC and MLO projections , bilateral exaggerated cc views CAD was used to evaluate this mammogram. FINDINGS: Right: No suspicious masses, groups of microcalcification or areas ofarchitectural distortion identified. Stable typically benign parenchymalasymmetries. Left: No suspicious masses, groups of microcalcification or areas ofarchitectural distortion identified. Stable typically benign parenchymalasymmetries. BREAST DENSITY: B - There are scattered areas of fibroglandular density. IMPRESSION: 1. No mammographic evidence of malignancy 2. Scattered fibroglandular tissue BI-RADS CATEGORY: 2 - BENIGN RECOMMENDATION: Screening bilateral mammogram is recommended in 1 year. Mammo Location: [facility], [address] [place] [address], [address], . -------- FINAL REPORT -------- Dictated By: Kye Avila Dictated Date: 12/15/2024 11:38 ET Assigned Physician: Kye Avila Reviewed and Electronically Signed By: Kye Avila Signed Date: 12/15/2024 11:48 ET Workstation ID: [id number] Transcribed By: Self Edit Transcribed Date: 12/15/2024 11:38 ET Ariane Del Valle Jay CNM IMG BI PROCEDURES Final Res ult from Last 3 Months or Most Recently Relevant to Health Maintenance Insurance [facility] Care Teams R Programmer Relationship Specialty Start Date End Date Betty Herzog DO [address] [place] [address] PCP - General Internal Medicine 07/22/22
== END 2025-07-19 14:42 | disposition home or self-care (01) ==
LOC: HO.HMCFM 13:52
PROVIDERS: PCP Internal Medicine; Visit Provider Internal Medicine
DX: Z00.00 Encounter for general adult medical examination without abnormal findings (principal); I10 Essential (primary) hypertension; K21.9 Gastro-esophageal reflux disease without esophagitis; M19.90 Unspecified osteoarthritis, unspecified site; J45.40 Moderate persistent asthma, uncomplicated

== ENCOUNTER 2025-09-23 10:30 | Emergency (ER) | payer BC, OTHER, SELFPAY ==
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
[2025-09-23 10:43] VITALS: BP 142/86; BP 161/96; PULSE 90; PULSE 95; RESP 16; TEMP 36.6; O2SAT 98; BMI 42.8
--- OUTSIDE RECORDS SUMMARY | 2025-09-23 10:54 | XMS_ITS | Clinical Summary ---
Author Organization [address] Address [address] [place] [address] Phone Care Team Providers Care Human Resource Statistician Name Role Phone Betty Herzog Primary Care Provider [phone] Surgical History Surgery Date Site/Laterality Comments ANKLE SURGERY 2010 PROCEDURE: HISTORICAL ANKLE SURGERY BACK SURGERY 2017 PROCEDURE: HISTORICAL BACK SURGERY KNEE SURGERY Left [...] Ectopic Multiple Livin g Live Births 1 1 1 1 Date Outcome GA Total Labor Labor/2nd/3rd [...] Depression Screening 09/29/2024 COVID-19 Vaccine (2 - season) 2025 06/01/2024 Influenza Vaccine (#1) 2025 06/01/2024, 2020 Breast Cancer Screening 12/14/2026 12/15/19, 04/28/2023, 04/18/2023, Additional history exists DTaP,Tdap,and Td [...] is recommended in 1 year. Mammo Location: [facility], [address] [place] [address], [id number], . -------- FINAL REPORT -------- Dictated By: Kye Avila Dictated Date: 12/15/2024 11:38 ET Assigned Physician: Kye Avila Reviewed and Electronically Signed By: Kye Avila Signed Date: 12/15/2024 11:48 ET Workstation ID: [id number] Transcribed By: Self Edit Transcribed Date: 12/15/2024 [...] is recommended in 1 year. Mammo Location: [facility], [address] [place] [address], [id number], . -------- FINAL REPORT -------- Dictated By: Kye Avila Dictated Date: 12/15/2024 11:38 ET Assigned Physician: Kye Avila Reviewed and Electronically Signed By: Kye Avila Signed Date: 12/15/2024 11:48 ET Workstation ID: [id number] Transcribed By: Self Edit Transcribed Date: 12/15/2024 11:38 ET Ariane Thompson CNM IMG BI PROCEDURES Final Res ult from Last 3 Months or Most Recently Relevant to Health Maintenance Insurance [facility] Care Teams Human Resource Statistician Relationship Specialty Start Date End Date Betty Herzog DO [address] [place] [address] PCP - General Internal Medicine 07/22/22
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
[2025-09-23 11:54] LABS: UPreg QC Valid YES
[2025-09-23 12:06] VITALS: BP 170/96; PULSE 98; RESP 20; O2SAT 96
[2025-09-23 13:38] VITALS: BP 128/83; PULSE 101; TEMP 36.9; O2SAT 98
[2025-09-23 14:06] VITALS: BP 128/83; PULSE 101; RESP 20; TEMP 36.9; O2SAT 98
== END 2025-09-23 14:06 | disposition home or self-care (01) ==
PROVIDERS: Emergency Provider Emergency Medicine; PCP Internal Medicine
DX: S90.02XA Contusion of left ankle, initial encounter (principal); S20.211A Contusion of right front wall of thorax, initial encounter; M54.2 Cervicalgia; V49.49XA Driver injured in collision with other motor vehicles in traffic accident, initial encounter; Y93.9 Activity, unspecified; Y92.9 Unspecified place or not applicable
CPT/HCPCS: 71046; 73610; 81025; 99283; 99285

== ENCOUNTER → 2025-09-23 11:34 | Outpatient (BNV) | payer BC, SELFPAY | PROVIDERS: Emergency Provider Emergency Medicine; PCP Internal Medicine; Visit Provider Radiology Diagnostic Radiology | DX: R07.89 Other chest pain (principal); M25.572 Pain in left ankle and joints of left foot; V89.2XXA Person injured in unspecified motor-vehicle accident, traffic, initial encounter | CPT/HCPCS: 71046; 73610 ==